=== PATIENT | female | born 1990 | race Caucasian/White ===

== ENCOUNTER 2018-01-28 05:50 | Day surgery (SDC) | payer OTHER ==
[~2018-01-28] VITALS: Ht 162.6 cm; Wt 74.0 kg
[2018-01-28] MEDS ORDERED: LACTATED RINGERS 1,000 ML IV SCH (06:36)
[2018-01-28] MEDS ORDERED: OXYMETAZOLINE NASAL SPRAY 0.05%, 15ML ONE (06:56)
[2018-01-28] MEDS ORDERED: LIDOCAINE-MPF 1%, 2ML INFIL ONE (07:00)
[2018-01-28 07:07] VITALS: BP 115/79
[2018-01-28] MEDS ORDERED: FENTANYL PF 250 MCG/5ML ONE (07:07)
[2018-01-28] MEDS ORDERED: MIDAZOLAM 1 MG/ML, 2ML ONE (07:07)
[2018-01-28] MEDS ORDERED: NORE5TAB2 PO (07:18)
[2018-01-28] MEDS ORDERED: GABAPENTIN 300 MG CAPSULE ONE (07:21)
[2018-01-28] MEDS ORDERED: ACETAMINOPHEN 500 MG TABLET ONE (07:21)
[2018-01-28] MEDS ORDERED: SCOPOLAMINE PATCH, 1.5MG PATCH.TD72 TD ONE ×2 (07:22→07:30)
[2018-01-28] MEDS ORDERED: ACETAMINOPHEN 500 MG TABLET PO ONE (07:30)
[2018-01-28] MEDS ORDERED: GABAPENTIN 300 MG CAPSULE PO ONE (07:30)
[2018-01-28 07:32] LABS: HCG UR SG 1.021 (1.003-1.030)
[2018-01-28] MEDS ORDERED: SUCCINYLCHOLINE 20 MG/ML, 10ML ONE (07:39)
[2018-01-28] MEDS ORDERED: ONDANSETRON 2MG/ML, 2ML ONE (07:39)
[2018-01-28] MEDS ORDERED: DEXAMETHASONE 4 MG/ML, 5ML ONE (07:39)
[2018-01-28] MEDS ORDERED: PROPOFOL 10 MG/ML, 20ML ONE (07:39)
[2018-01-28] MEDS ORDERED: ROCURONIUM 10 MG/ML,10ML ONE (07:39)
[2018-01-28] MEDS ORDERED: MEPERIDINE/PF 25MG/0.5ML IVPush PRN (08:30)
[2018-01-28] MEDS ORDERED: KETOROLAC 30 MG/1 ML IV PRN (08:30)
[2018-01-28] MEDS ORDERED: ALBUTEROL SULFATE 2.5 MG/3 ML NPPB PRN (08:30)
[2018-01-28] MEDS ORDERED: PROMETHAZINE 25 MG/ML, 1ML IV PRN (08:30)
[2018-01-28] MEDS ORDERED: METOCLOPRAMIDE 5 MG/ML, 2ML IV PRN (08:30)
[2018-01-28] MEDS ORDERED: hydrALAzine 20 MG/ML, 1ML IV PRN (08:30)
[2018-01-28] MEDS ORDERED: ONDANSETRON 2MG/ML, 2ML IVPush PRN (08:30)
[2018-01-28] MEDS ORDERED: LABETALOL 5MG/ML, 20ML IV PRN (08:30)
[2018-01-28] MEDS ORDERED: OXYcodone 5 MG/5 ML ORAL.SOL UDC ONE ×2 (08:39→08:58)
[2018-01-28] MEDS ORDERED: FENTANYL PF 100 MCG/2ML ONE (08:39)
[2018-01-28] MEDS ORDERED: KETOROLAC 30 MG/1 ML ONE (08:39)
[2018-01-28] MEDS: OXYcodone 5 MG/5 ML ORAL.SOL UDC PO PRN ×2 (08:40→09:32)
[2018-01-28] MEDS: FENTANYL PF 100 MCG/2ML IV PRN ×3 (08:42→08:57)
[2018-01-28] MEDS ORDERED: HYDROmorphone 2 MG/ML, 1ML ONE (08:58)
[2018-01-28] MEDS: HYDROmorphone 1 MG/ML, 1ML IV PRN ×3 (09:01→09:31)
== END 2018-01-28 11:15 | disposition home or self-care (01) ==
LOC: OUT 05:50
PROVIDERS: ATTEND Otolaryngology
DX: J03.91 Acute recurrent tonsillitis, unspecified (principal); F41.9 Anxiety disorder, unspecified; G89.18 Other acute postprocedural pain; Z98.890 Other specified postprocedural states
CPT/HCPCS: 42821; 81025; 88304; J0330; J1100; J1170; J1885; J2250; J2405; J2704; J3010; J7120

== ENCOUNTER 2018-11-06 12:48 | Emergency (ER) | payer OTHER ==
[~2018-11-06] VITALS: Ht 162.6 cm; Wt 77.5 kg
[~2018-11-06 12:48] MED LIST: NORE5TAB2 PO
[2018-11-06 12:50] VITALS: BP 133/80
== END 2018-11-06 14:33 | disposition home or self-care (01) ==
LOC: ED 14:24
DX: S13.4XXA Sprain of ligaments of cervical spine, initial encounter (principal); S23.3XXA Sprain of ligaments of thoracic spine, initial encounter; V53.5XXA Driver of pick-up truck or van injured in collision with car, pick-up truck or van in traffic accident, initial encounter; Y93.89 Activity, other specified; Y92.410 Unspecified street and highway as the place of occurrence of the external cause; Y99.8 Other external cause status
CPT/HCPCS: 72020; 72050; 72072; 99283

== ENCOUNTER 2019-10-28 10:37 | Outpatient (CLI) | payer BC ==
[2019-10-28] MEDS ORDERED: ERGO500017 PO (11:57)
[2019-10-28] MEDS ORDERED: DULO30CA2 PO (11:57)
[2019-10-28] MEDS ORDERED: LEVO112T4 PO (11:57)
[2019-10-28] MEDS ORDERED: HYDR200T72 PO (11:57)
[2019-10-28] MEDS ORDERED: PHEN15CA2 PO (12:06)
== END 2019-10-28 23:59 | disposition home or self-care (01) ==
LOC: CFH 10:37
PROVIDERS: ATTEND Surgery
DX: R22.32 Localized swelling, mass and lump, left upper limb (principal)

== ENCOUNTER 2019-10-28 11:30 | Outpatient (CLI) | payer BC ==
[2019-10-28] MEDS ORDERED: ERGO500017 PO (11:57)
[2019-10-28] MEDS ORDERED: HYDR200T72 PO (11:57)
[2019-10-28] MEDS ORDERED: DULO30CA2 PO (11:57)
[2019-10-28] MEDS ORDERED: LEVO112T4 PO (11:57)
[2019-10-28] MEDS ORDERED: PHEN15CA2 PO (12:06)
== END 2019-10-28 23:59 | disposition home or self-care (01) ==
LOC: STAR 11:30
PROVIDERS: ATTEND Surgery
DX: Z11.59 Encounter for screening for other viral diseases (principal)
CPT/HCPCS: U0001-CS

== ENCOUNTER 2019-11-05 06:02 | Day surgery (SDC) | payer BC ==
[~2019-11-05] VITALS: Ht 162.6 cm; Wt 76.0 kg
[~2019-11-05 06:02] MED LIST changes: +DULO30CA2 PO; +ERGO500017 PO; +HYDR200T72 PO; +LEVO112T4 PO; +PHEN15CA2 PO
[2019-11-05] MEDS ORDERED: LACTATED RINGERS 1,000 ML IV SCH (06:44)
[2019-11-05] MEDS ORDERED: BUPIVACAINE/PF-EPI 0.5% 1:200K ONE (07:08)
[2019-11-05] MEDS ORDERED: ISOSULFAN BLUE 10 MG/ML, 5ML IV ONE (07:08)
[2019-11-05] MEDS ORDERED: FENTANYL PF 100 MCG/2ML ONE ×2 (07:26→09:31)
[2019-11-05] MEDS ORDERED: MIDAZOLAM 1 MG/ML, 2ML ONE (07:26)
[2019-11-05] MEDS ORDERED: PROPOFOL 10 MG/ML, 20ML ONE ×2 (07:26)
[2019-11-05] MEDS ORDERED: ONDANSETRON 2MG/ML, 2ML ONE (07:28)
[2019-11-05] MEDS ORDERED: CEFAZOLIN 1,000 MG ONE ×2 (07:28)
[2019-11-05] MEDS ORDERED: DEXAMETHASONE 4 MG/ML, 1ML ONE ×2 (07:28)
[2019-11-05 07:29] LABS: HCG UR SG 1.016 (1.003-1.030)
[2019-11-05] MEDS ORDERED: CHLORHEXIDINE 15 ML UDC ONE (07:43)
[2019-11-05] MEDS ORDERED: FAMOTIDINE 20 MG TABLET ONE (07:46)
[2019-11-05] MEDS ORDERED: ACETAMINOPHEN 500 MG TABLET ONE (07:46)
[2019-11-05] MEDS ORDERED: OXYcodone IR 5MG TABLET ONE (07:46)
[2019-11-05] MEDS ORDERED: CHLORHEXIDINE 15 ML UDC MM STA (08:01)
[2019-11-05] MEDS ORDERED: GLYCOPYRROLATE 0.2MG/1ML, 5ML ONE (08:37)
[2019-11-05] MEDS ORDERED: KETOROLAC 30 MG/1 ML IM PRN (09:00)
[2019-11-05] MEDS ORDERED: PROMETHAZINE 25 MG/ML, 1ML IVPush PRN (09:00)
[2019-11-05] MEDS ORDERED: FENTANYL PF 100 MCG/2ML IV PRN (09:00)
[2019-11-05] MEDS ORDERED: MEPERIDINE/PF 25MG/0.5ML IVPush PRN (09:00)
[2019-11-05] MEDS ORDERED: OXYcodone 5 MG/5 ML ORAL.SOL UDC ONE (09:19)
[2019-11-05] MEDS ORDERED: KETOROLAC 30 MG/1 ML ONE (09:19)
[2019-11-05] MEDS: OXYcodone 5 MG/5 ML ORAL.SOL UDC PO PRN ×2 (09:20→10:20)
[2019-11-05] MEDS ORDERED: KETOROLAC 30 MG/1 ML IV PRN (09:30)
== END 2019-11-05 11:15 | disposition home or self-care (01) ==
LOC: OUT 06:02
PROVIDERS: ATTEND Surgery
DX: D48.62 Neoplasm of uncertain behavior of left breast (principal); D24.2 Benign neoplasm of left breast; M06.00 Rheumatoid arthritis without rheumatoid factor, unspecified site; E03.9 Hypothyroidism, unspecified; Z79.890 Hormone replacement therapy; Z79.899 Other long term (current) drug therapy; Z88.8 Allergy status to other drugs, medicaments and biological substances; Z98.890 Other specified postprocedural states; Z80.3 Family history of malignant neoplasm of breast; Z80.42 Family history of malignant neoplasm of prostate
CPT/HCPCS: 19120; 81025; 88305; J0690; J1100; J1885; J2250; J2405; J2704; J3010; J7120

== ENCOUNTER 2021-01-17 15:21 | Outpatient (CLI) | payer BC ==
[2021-01-17] MEDS ORDERED: ERGO500017 PO (15:52)
[2021-01-17] MEDS ORDERED: METH-639 PO (15:52)
[2021-01-17] MEDS ORDERED: PRED10TA PO (15:52)
[2021-01-17] MEDS ORDERED: NORE5TAB2 PO (15:52)
== END 2021-01-17 23:59 | disposition home or self-care (01) ==
LOC: STAR 15:21
PROVIDERS: ATTEND Obstetrics & Gynecology Female Pelvic Medicine and Reconstructive Surgery
DX: Z02.9 Encounter for administrative examinations, unspecified (principal)

== ENCOUNTER 2021-01-23 05:37 | Day surgery (SDC) | payer BC ==
[~2021-01-23] VITALS: Ht 161.3 cm; Wt 87.2 kg
[~2021-01-23 05:37] MED LIST changes: +METH-639 PO; +PRED10TA PO
[2021-01-23 06:12] VITALS: BP 120/82
[2021-01-23] MEDS ORDERED: CHLORHEXIDINE 15 ML UDC ONE (06:24)
[2021-01-23] MEDS ORDERED: CHLORHEXIDINE 15 ML UDC PO ONE (06:30)
[2021-01-23] MEDS ORDERED: LACTATED RINGERS 1,000 ML IV SCH ×2 (06:30→09:30)
[2021-01-23 06:39] LABS: HCG UR SG 1.026 (1.003-1.030)
[2021-01-23] MEDS ORDERED: BUPIVACAINE/PF-EPI 0.25% 1:200K ONE (06:49)
[2021-01-23] MEDS ORDERED: FLUORESCEIN SODIUM 500 MG/5 ML ONE (06:49)
[2021-01-23] MEDS ORDERED: ACETAMINOPHEN 500 MG TABLET ONE (07:05)
[2021-01-23] MEDS ORDERED: SCOPOLAMINE 1MG PATCH TD ONE ×2 (07:05→07:30)
[2021-01-23] MEDS ORDERED: MIDAZOLAM 1 MG/ML, 2ML ONE (07:08)
[2021-01-23] MEDS ORDERED: FENTANYL PF 250 MCG/5ML ONE (07:08)
[2021-01-23] MEDS ORDERED: ROCURONIUM 10MG/ML,5ML ONE (07:08)
[2021-01-23] MEDS ORDERED: DEXAMETHASONE 4 MG/ML, 1ML ONE (07:09)
[2021-01-23] MEDS ORDERED: PROPOFOL 10 MG/ML, 20ML ONE (07:09)
[2021-01-23] MEDS ORDERED: CEFAZOLIN 1,000 MG ONE (07:27)
[2021-01-23] MEDS ORDERED: SUCCINYLCHOLINE 20 MG/ML, 10ML ONE (07:27)
[2021-01-23] MEDS ORDERED: PHENYLEPHRINE 10 MG/ML ONE (07:27)
[2021-01-23] MEDS ORDERED: ONDANSETRON 2MG/ML, 2ML ONE (07:27)
[2021-01-23] MEDS ORDERED: SUGAMMADEX 200 MG/2 ML IVPush ONE (07:27)
[2021-01-23] MEDS ORDERED: ACETAMINOPHEN 500 MG TABLET PO ONE (07:30)
[2021-01-23] MEDS ORDERED: DIAZEPAM 5 MG/ML, 2ML IVPush PRN (09:00)
[2021-01-23] MEDS ORDERED: DIPHENHYDRAMINE 50 MG/ML, 1ML IVPush PRN ×2 (09:00)
[2021-01-23] MEDS ORDERED: PROMETHAZINE 25 MG/ML, 1ML IVPush PRN (09:00)
[2021-01-23] MEDS ORDERED: HYDROmorphone 1 MG/ML, 1ML INJ IVPush PRN (09:00)
[2021-01-23] MEDS ORDERED: LORazepam 2 MG/ML, 1ML IVPush PRN (09:00)
[2021-01-23] MEDS ORDERED: ONDANSETRON 2MG/ML, 2ML IVPush PRN ×2 (09:00→09:30)
[2021-01-23] MEDS ORDERED: ALBUTEROL SULFATE 2.5 MG/3 ML NPPB PRN (09:00)
[2021-01-23] MEDS ORDERED: FENTANYL PF 100 MCG/2ML ONE ×2 (09:00→09:28)
[2021-01-23] MEDS ORDERED: EPHEDRINE 50 MG/ML, 1ML IVPush PRN (09:00)
[2021-01-23] MEDS ORDERED: OXYcodone 5 MG/5 ML ORAL.SOL UDC PO PRN (09:00)
[2021-01-23] MEDS ORDERED: LABETALOL 5MG/ML, 20ML IV PRN (09:00)
[2021-01-23] MEDS ORDERED: PROMETHAZINE 12.5 MG SUPP PR PRN (09:00)
[2021-01-23] MEDS ORDERED: MIDAZOLAM 1 MG/ML, 2ML IV PRN (09:00)
[2021-01-23] MEDS ORDERED: hydrALAzine 20 MG/ML, 1ML IV PRN (09:00)
[2021-01-23] MEDS ORDERED: KETOROLAC 30 MG/1 ML ONE (09:28)
[2021-01-23] MEDS ORDERED: HYDROcodone/APAP 5/325 TABLET PO PRN (09:30)
[2021-01-23] MEDS ORDERED: IBUPROFEN 600 MG TABLET PO PRN (09:30)
[2021-01-23] MEDS ORDERED: PROMETHAZINE 25 MG SUPP PR ONE (09:30)
[2021-01-23] MEDS ORDERED: MEPERIDINE/PF 25MG/ML,1ML ONE ×2 (09:31→09:54)
[2021-01-23] MEDS: MEPERIDINE/PF 25MG/0.5ML IVPush PRN ×2 (09:34→09:57)
[2021-01-23] MEDS: FENTANYL PF 100 MCG/2ML IV PRN ×2 (09:40→09:51)
[2021-01-23] MEDS ORDERED: OXYcodone 5 MG/5 ML ORAL.SOL UDC ONE (09:53)
[2021-01-23] MEDS ORDERED: ACETAMINOPHEN 650 MG/20.3 ML UDC ONE (09:54)
[2021-01-23] MEDS ORDERED: KETOROLAC 30 MG/1 ML IVPush PRN (10:00)
== END 2021-01-23 13:40 | disposition home or self-care (01) ==
LOC: OUT 05:37
PROVIDERS: ATTEND Obstetrics & Gynecology Female Pelvic Medicine and Reconstructive Surgery
DX: N93.9 Abnormal uterine and vaginal bleeding, unspecified (principal); N92.1 Excessive and frequent menstruation with irregular cycle; K66.0 Peritoneal adhesions (postprocedural) (postinfection); N80.9 Endometriosis, unspecified; N93.8 Other specified abnormal uterine and vaginal bleeding; M06.9 Rheumatoid arthritis, unspecified; F41.9 Anxiety disorder, unspecified; F32.9 Major depressive disorder, single episode, unspecified; Z88.8 Allergy status to other drugs, medicaments and biological substances; Z88.1 Allergy status to other antibiotic agents; Z98.890 Other specified postprocedural states; Z79.899 Other long term (current) drug therapy
CPT/HCPCS: 57268; 58571; 81025; 88307; J0330; J0690; J1100; J1885; J2175; J2250; J2370; J2405; J2704; J3010; J7120